=== PATIENT | male | born 1935 | race Caucasian/White ===

== ENCOUNTER → 2018-08-19 | Outpatient (CLI) | payer MEDICARE, BC ==
[2014-06-04 15:25] VITALS: BP 128/100
[~2018-08-19] MED LIST: BENADRYL25 M2 PO; CENTRUM1 TA1 PO; GINGER ROOT550 MG PO; MAXZIDE-25 (1 UDTAB PO; TUSSIN100 MG/52 PO; TYLENOL 650MG650 M2 PO
== END ==
LOC: RAD 09:15
DX: I51.7 Cardiomegaly (principal); R91.1 Solitary pulmonary nodule
CPT/HCPCS: Q9967

== ENCOUNTER 2019-04-13 17:55 | Emergency (ER) | payer MEDICARE, BC ==
[~2019-04-13] VITALS: Ht 177.8 cm; Wt 97.7 kg
[2019-04-13] MEDS ORDERED: LOSARTAN POTASS50 M1 PO (18:15)
[2019-04-13] MEDS ORDERED: WARFARIN SODIUM4 MG PO (18:16)
[2019-04-13] MEDS ORDERED: GINGER ROOT550 M1 PO (18:17)
[2019-04-13] MEDS ORDERED: ASPIRIN E.C. 8181 MG PO (18:17)
[2019-04-13] MEDS ORDERED: POTASSIUM CHLO20 ME4 PO (18:18)
[2019-04-13] MEDS ORDERED: AMIODARONE200 MG PO (18:19)
[2019-04-13] MEDS ORDERED: ATORVASTATIN CA10 MG PO (18:19)
[2019-04-13] MEDS ORDERED: CARVEDILOL25 MG PO (18:20)
[2019-04-13] MEDS ORDERED: TORSEMIDE20 M1 PO (18:21)
[2019-04-13 21:16] VITALS: BP 171/99
== END 2019-04-13 21:26 | disposition home or self-care (01) ==
LOC: ED 17:55
DX: S01.112A Laceration without foreign body of left eyelid and periocular area, initial encounter (principal); I10 Essential (primary) hypertension; I48.91 Unspecified atrial fibrillation; R40.2410 Glasgow coma scale score 13-15, unspecified time; W14.XXXA Fall from tree, initial encounter; Y92.009 Unspecified place in unspecified non-institutional (private) residence as the place of occurrence of the external cause